=== PATIENT | female | born 1975 | race Two or more races ===

== ENCOUNTER → 2023-05-28 13:42 | Outpatient (BNVA) | payer OTHER, SELFPAY | PROVIDERS: PCP Internal Medicine; Visit Provider Physician Assistant Medical | DX: S29.012A Strain of muscle and tendon of back wall of thorax, initial encounter (principal); S43.401A Unspecified sprain of right shoulder joint, initial encounter; S80.01XA Contusion of right knee, initial encounter; W18.30XA Fall on same level, unspecified, initial encounter; M77.11 Lateral epicondylitis, right elbow | CPT/HCPCS: 73030; 73564; 99203 ==

== ENCOUNTER 2023-06-10 15:00 | Outpatient (RCR) | payer OTHER, SELFPAY ==
--- NOTE | 2023-06-01 08:51 | MHC.PT.EP ---
[facility] [place] [facility] [place] [facility] [place] Office [address] Steph Baptiste [address] [phone] F: [phone] F: [phone] F: [phone] F: [phone] Physical Therapy Plan of Care Date of Evaluation: 06/01/23 Date of Surgery: n/a Diagnosis: R thoracic & R shoulder pain Assessment: Patient is a 47 year old female presenting to PT with complaints of pain in her R shoulder and thoracic area. Pt reports onset of pain began 05/22/2023 due to slipping and falling on ice. She presents today with impairments in pain, ROM, strength, posture. 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 Pt expresses halfway goal of reducing pain, and is motivated to work towards this in PT. Clinical presentation today is most consistent with signs and sx associated with R shoulder and thoracic pain and pt will benefit from skilled PT 2 week x 4 weeks to address the following problems and impairments noted upon evaluation: pain, ROM, strength, posture. These problems limit the patient with the following functional activities: ADLs, work, lifting, reaching. The prescribed treatment plan of care is medically necessary. Co-morbidities of HTN were identified and taken into considerations of plan of care. Pt was educated on HEP, role of PT, prognosis, POC. Frequency and Duration: The patient will be seen 2 x week x 4 weeks Short Term Goals: Pt will demonstrate symmetrical shoulder ROM in 2 weeks. Pt will demonstrate improved R shoulder MMT strength by 1/3 grade in 2 weeks. Pt will demonstrate improved postural awareness by sitting with biomechanically correct posture without cues throughout session to improve overall postural function in 2 weeks. Fdc Goals: Pt will demonstrate improved SAPDI score by 13 points in 4 weeks for improved functional mobility. Pt will demonstrate improved ability to reach with min to no pain in 4 weeks for improved tolerance to dressing. Pt will demonstrate ability to lift with min to no pain in 4 weeks for improved ability to complete household duties. Treatment Plan: Modalities to reduce pain, spasms and effusion. Manual therapy to restore motion and function. Therapeutic exercise to improve strength and flexibility. Neuromuscular re-education for posture and balance. Therapeutic activities to return to functional activities of daily living. Electronically signed by: Seema Stephens, PT, DPT, ATC Please sign and return to therapist. Thank you for your referral.
--- NOTE | 2023-07-09 07:53 | MHC.PT.DC ---
[facility] [place] [facility] [place] Office [place] Office [address] Baptiste [address] [phone] F: [phone] F: [phone] F: [phone] F: [phone] Physical Therapy Discharge Report Diagnosis: R thoracic & R shoulder pain Date of Surgery: n/a Date of Evaluation: 06/01/23 Date of Discharge: 07/09/23 Treatments to Date: 4 Cancellations to Date: 0 No Shows to Date: 0 Discharge Status: Patient Elected to Stop Discharge Summary: Pt was supposed to call to be scheduled after her work connection visit. Pt has not called in >30 days and therefore to be d/c per policy. Electronically signed by: Seema Stephens, PT, DPT, ATC Please sign and return to therapist. Thank you for your referral.
== END 2023-07-09 07:53 | disposition home or self-care (01) ==
LOC: HO.PTCHIC 15:00
PROVIDERS: PCP Family Medicine; Visit Provider Physician Assistant Medical
DX: S29.012D Strain of muscle and tendon of back wall of thorax, subsequent encounter (principal); S43.401D Unspecified sprain of right shoulder joint, subsequent encounter
CPT/HCPCS: 97110; 97140; 97161

== ENCOUNTER → 2023-06-11 09:42 | Outpatient (BNVA) | payer OTHER, SELFPAY | PROVIDERS: PCP Family Medicine; Visit Provider Physician Assistant Medical | DX: S80.01XD Contusion of right knee, subsequent encounter (principal); S80.02XD Contusion of left knee, subsequent encounter; S43.401D Unspecified sprain of right shoulder joint, subsequent encounter; S29.012D Strain of muscle and tendon of back wall of thorax, subsequent encounter; W18.30XD Fall on same level, unspecified, subsequent encounter; M54.50 Low back pain, unspecified; M77.11 Lateral epicondylitis, right elbow | CPT/HCPCS: 73080; 99214 ==

== ENCOUNTER → 2023-06-29 15:25 | Outpatient (BNVA) | payer OTHER, SELFPAY | PROVIDERS: PCP Family Medicine; Visit Provider Physician Assistant Medical | DX: S83.91XD Sprain of unspecified site of right knee, subsequent encounter (principal); S83.92XD Sprain of unspecified site of left knee, subsequent encounter; S46.911D Strain of unspecified muscle, fascia and tendon at shoulder and upper arm level, right arm, subsequent encounter; S29.012D Strain of muscle and tendon of back wall of thorax, subsequent encounter; W18.30XD Fall on same level, unspecified, subsequent encounter; M77.11 Lateral epicondylitis, right elbow | CPT/HCPCS: 99213 ==

== ENCOUNTER → 2023-07-20 15:16 | Outpatient (BNVA) | payer OTHER, SELFPAY | PROVIDERS: PCP Family Medicine; Visit Provider Physician Assistant Medical | DX: M17.0 Bilateral primary osteoarthritis of knee (principal); M54.50 Low back pain, unspecified; M50.30 Other cervical disc degeneration, unspecified cervical region | CPT/HCPCS: 99213 ==

== ENCOUNTER → 2023-08-14 08:08 | Outpatient (BNVA) | payer OTHER, SELFPAY | PROVIDERS: PCP Family Medicine; Visit Provider Physician Assistant Medical | DX: M17.0 Bilateral primary osteoarthritis of knee (principal); M54.50 Low back pain, unspecified; M54.2 Cervicalgia | CPT/HCPCS: 99213 ==

== ENCOUNTER → 2023-09-03 11:06 | Outpatient (BNVA) | payer OTHER, SELFPAY | PROVIDERS: PCP Family Medicine; Visit Provider Physician Assistant Medical | DX: M17.0 Bilateral primary osteoarthritis of knee (principal) | CPT/HCPCS: 99213 ==

== ENCOUNTER → 2023-10-15 14:58 | Outpatient (BNVA) | payer OTHER, SELFPAY | PROVIDERS: PCP Family Medicine; Visit Provider Physician Assistant Medical | DX: M25.561 Pain in right knee (principal); M17.0 Bilateral primary osteoarthritis of knee | CPT/HCPCS: 99213 ==

== ENCOUNTER 2023-10-19 08:00 | Outpatient (RCR) | payer OTHER, SELFPAY ==
--- NOTE | 2023-08-25 10:12 | MHC.PT.EP ---
[facility] [place] Office [place] Office [place] Office [address] Oliva [address] [phone] F: [phone] F: [phone] F: [phone] F: [phone] Physical Therapy Plan of Care Date of Evaluation: 08/25/23 Date of Surgery: Diagnosis: B/L knee degenerative joint disease Assessment: Patient is a 47 year old R handed female who presents with s/s consistent with b/l OA, degenerative joint disease, knee pain. 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 Patient past medical history includes HTN, asthma, OA, and obesity. Current impairments include pain, balance, ROM, strength, activity tolerance and functional mobility. Functional limitations include decreased ability to transfer, stand, negotiate stairs, and walk longer distances. Patient is motivated with good rehab potential. Skilled PT will address impairments and functional limitations in order to achieve goals. Frequency and Duration: The patient will be seen 2x/week for 5 weeks Short Term Goals: I with HEP -2 weeks AROM 0-120 - 3 weeks Able to ride stepper 10 min 45 RPM - 3 weeks Food Scientist Goals: LFES 34/80 - 5 weeks Strength 4+/5 grossly - 5 weeks Able to walk 20 minutes without increased pain - 5 weeks Treatment Plan: Modalities to reduce pain, spasms and effusion. Manual therapy to restore motion and function. Therapeutic exercise to improve strength and flexibility. Neuromuscular re-education for posture and balance. Therapeutic activities to return to functional activities of daily living. Electronically signed by: Christopher Stevenson, PT Please sign and return to therapist. Thank you for your referral.
--- NOTE | 2024-02-10 15:06 | MHC.PT.DC ---
[facility] [place] Office [place] Office [place] Office [address] Steph Baptiste [address] [phone] F: [phone] F: [phone] F: [phone] F: [phone] Physical Therapy Discharge Report Diagnosis: B/L knee degenerative joint disease Date of Surgery: Date of Evaluation: 08/25/23 Date of Discharge: 11/12/23 Treatments to Date: 10 Cancellations to Date: No Shows to Date: Discharge Status: Independent with HEP Patient Elected to Stop Discharge Summary: 10/19/23: progress has stoppd and pt is limiting participation by arriving 15 minutes late to appt (apologetic but late none the less) and refusing heel slides, possibly related to pain. 10/16/23: pt with significant pain and reduced activity tolerance today. notes she has been limping a lot lately and has been missing work. we did use CP to finish and held on progression. she notes gel shot scheduled for next month. 10/09/23: held progression due to pain in ant/lat knee. we did add iastm to ITB to address. 10/02/23: pt compliant with HEP and attending the pool for aquatic program weekly. we will continue to progress as tolerated. 09/25/23: pt progressing well overall with improved activity tolerance and functional mobility. we will attempt to progress stair negotiation with mechanical focus NV. 09/23/23: pt 10 min late and accommodated. ROM sustained. responding well to PT + pool program. plan to continue 3 more weeks. Pt has been I with HEP. progressing overall toward ROM. She has met stepper goals. Strength is 4/5 b/l. She is able to walk 20 minutes with mild pain increase. She is motivated to continue to address impairments related to ROM, balance, pain and function. We will plan to continue 2x/week for 3 more weeks. 09/16/23: pt 10 min late and accommodated. ROM improving. R flexion 113, L 118. Reduced pain today. progress as tolerated. 09/09/23: pt progress is slow so far. ROM improving but pain is not. notes doing aquatic ex this AM. 09/04/23: pt with improved ROM and reduced discomfort overall. continue to progress as tolerated. 09/02/23: pt progressed with strength and ROM today. L flexion AAROM 114, R 108. continue to progress as tolerated and update HEP NV. Patient is a 47 year old R handed female who presents with s/s consistent with b/l OA, degenerative joint disease, knee pain. 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 Patient past medical history includes HTN, asthma, OA, and obesity. Current impairments include pain, balance, ROM, strength, activity tolerance and functional mobility. Functional limitations include decreased ability to transfer, stand, negotiate stairs, and walk longer distances. Patient is motivated with good rehab potential. Skilled PT will address impairments and functional limitations in order to achieve goals. Electronically signed by: Christopher Stevenson, PT Please sign and return to therapist. Thank you for your referral.
== END 2024-02-10 15:07 | disposition home or self-care (01) ==
LOC: HO.PTCHIC 08:00
PROVIDERS: PCP Family Medicine; Visit Provider Physician Assistant
DX: M17.0 Bilateral primary osteoarthritis of knee (principal)
CPT/HCPCS: 97110; 97140; 97162

== ENCOUNTER → 2023-10-27 15:32 | Outpatient (BNVA) | payer OTHER, SELFPAY | PROVIDERS: PCP Family Medicine; Visit Provider Physician Assistant Medical | DX: M17.0 Bilateral primary osteoarthritis of knee (principal) | CPT/HCPCS: 99213 ==